=== PATIENT | female | born 1980 | race Caucasian/White ===

== ENCOUNTER 2017-12-10 10:18 | Outpatient (CLI) | payer OTHER | END 2017-12-10 10:19 | disposition home or self-care (01) | LOC: BICMAMMO 10:18 | PROVIDERS: ATTEND Family Medicine | DX: Z12.31 Encounter for screening mammogram for malignant neoplasm of breast (principal); Z80.3 Family history of malignant neoplasm of breast | CPT/HCPCS: 77067 ==

== ENCOUNTER 2017-12-31 08:18 | Outpatient (CLI) | payer OTHER | END 2017-12-31 08:19 | disposition home or self-care (01) | LOC: BICMAMMO 08:18 | PROVIDERS: ATTEND Family Medicine | DX: N63.20 Unspecified lump in the left breast, unspecified quadrant (principal) | CPT/HCPCS: G0206-LT; G0279 ==

== ENCOUNTER 2018-04-21 16:16 | Emergency (ER) | payer OTHER ==
[2018-04-21 16:57] LABS: #Eosinphils 0.1 thou/uL (0.0-0.7); #Lymphocytes 1.3 thou/uL (1.20-3.40); #Monocytes 0.3 thou/uL (0.11-0.59); #Neutrophils 4.9 thou/uL (1.40-6.50); %Basophils 0.5 % (0.0-1.0); %Eosinophils 2.2 % (0.0-10.0); %Lymphocytes 18.9 % (21.0-51.0); %Monocytes 5.1 % (0.0-10.0); %Neutrophils 73.3 % (42.0-75.0); Hemoglobin 11.3 g/dL (12.0-16.0); Mean Corpuscular HGB CONC 34.7 g/dL (32.0-36.0); Mean Corpuscular Hemoglobin 28.9 pg (27.0-31.0); Mean Corpuscular Volume 83.1 fl (81.0-99.0); Platelet Count 310 thou/uL (130-400); RBC Distribution Width 13.3 % (11.5-14.5); Red Blood Cell (RBC) Count 3.92 mill/uL (4.20-5.40); White Blood Cell (WBC) Count 6.7 thou/uL (4.8-10.8)
[2018-04-21 17:19] LABS: ALT (SGPT) 17 U/L (8-55); AST (SGOT) 15 U/L (5-34); Albumin 3.7 g/dL (3.5-5.0); Alkaline Phosphatase 76 U/L (40-150); Anion Gap 12 mmol/L (10-20); BUN (Urea Nitrogen) 8 mg/dL (7.0-18.7); Bilirubin, Total 0.3 mg/dL (0.2-1.2); Calc. Creatinine Clearance 0 mL/min (70-130); Calcium 8.7 mg/dL (7.8-10.44); Carbon Dioxide 22 mmol/L (22-29); Chloride 108 mmol/L (98-107); Estimated GFR-MDRD 84; Glucose 124 mg/dL (70-105); Potassium 3.4 mmol/L (3.5-5.1); Protein, Total 6.7 g/dL (6.0-8.3); Sodium 139 mmol/L (136-145)
--- NOTE | 2018-04-21 17:59 | RAD ---
RADIOGRAPH LEFT FOOT THREE VIEWS: 04/21/2018 5:31 p.m. HISTORY: A 38-year-old female with nontraumatic left foot swelling and pain. FINDINGS: There is soft tissue swelling of the dorsum of the foot. No periosteal elevation, osteolytic lesion, osteoblastic lesion, or permeative lesion. Mild to moderate DJD at the first MTP without hallux kilo sameer. Pes planus. The rest of the joints are normal. No fracture or dislocation. IMPRESSION: 1. Soft tissue swelling of the dorsum of the forefoot. 2. 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 3. Pes planus. POS: [facility]
== END 2018-04-21 20:11 | disposition home or self-care (01) ==
LOC: ERS 16:16
DX: L03.116 Cellulitis of left lower limb (principal); E03.9 Hypothyroidism, unspecified; F41.9 Anxiety disorder, unspecified; I10 Essential (primary) hypertension; J45.909 Unspecified asthma, uncomplicated; Z79.899 Other long term (current) drug therapy
CPT/HCPCS: 36415; 80053; 83880; 85025; 86140

== ENCOUNTER 2018-07-04 08:02 | Outpatient (CLI) | payer OTHER | END 2018-07-04 08:03 | disposition home or self-care (01) | LOC: BICMAMMO 08:02 | PROVIDERS: ATTEND Family Medicine | DX: R92.8 Other abnormal and inconclusive findings on diagnostic imaging of breast (principal); Z80.3 Family history of malignant neoplasm of breast | CPT/HCPCS: 77066; G0279 ==

== ENCOUNTER 2018-07-25 14:15 | Emergency (ER) | payer OTHER ==
[~2018-07-25 14:15] MED LIST: ISOVUE-370 76%-LOCM 1 ML ONE
[2018-07-25 15:34] LABS: #Eosinphils 0.4 thou/uL (0.0-0.7); #Lymphocytes 1.4 thou/uL (1.20-3.40); #Monocytes 0.5 thou/uL (0.11-0.59); #Neutrophils 5.1 thou/uL (1.40-6.50); %Basophils 0.4 % (0.0-1.0); %Eosinophils 5.1 % (0.0-10.0); %Lymphocytes 18.8 % (21.0-51.0); %Monocytes 7.2 % (0.0-10.0); %Neutrophils 68.5 % (42.0-75.0); Mean Corpuscular Hemoglobin 27.2 pg (27.0-31.0); Mean Corpuscular Volume 82.5 fL (78.0-98.0); Mean Platelet Volume 7.8 fL (7.4-10.4); Platelet Count 299 thou/uL (130-400); RBC Distribution Width 13.7 % (11.5-14.5); Red Blood Cell (RBC) Count 4.41 mill/uL (4.20-5.40); White Blood Cell (WBC) Count 7.4 thou/uL (4.8-10.8)
[2018-07-25 16:10] LABS: ALT (SGPT) 14 U/L (8-55); AST (SGOT) 13 U/L (5-34); Albumin 3.9 g/dL (3.5-5.0); Alkaline Phosphatase 78 U/L (40-150); Anion Gap 12 mmol/L (10-20); BUN (Urea Nitrogen) 9 mg/dL (7.0-18.7); Bilirubin, Total 0.3 mg/dL (0.2-1.2); Calc. Creatinine Clearance 0 mL/min (70-130); Calcium 9.1 mg/dL (7.8-10.44); Carbon Dioxide 21 mmol/L (22-29); Chloride 108 mmol/L (98-107); Estimated GFR-MDRD 85; Glucose 153 mg/dL (70-105); Potassium 3.4 mmol/L (3.5-5.1); Protein, Total 6.9 g/dL (6.0-8.3); Sodium 138 mmol/L (136-145)
--- NOTE | 2018-07-25 16:13 | RAD ---
CHEST ONE VIEW: HISTORY: Cough. COMPARISON: Chest radiograph from 2015. FINDINGS: There is a calcified granuloma in the left mid lung. Mild pulmonary vascular congestion. No pneumot horax. The lungs are slightly hypoinflated. IMPRESSION: No acute intrathoracic abnormality. POS: [facility]
[2018-07-25 17:46] LABS: BHCG - Serum Negative (NEGATIVE); Pregs Control Background? CLEAR/WHITE (CLR/WHITE); Pregs Control Bar Appear? YES (CONTROL BAR)
[2018-07-25 17:54] LABS: CKMB 0.6 ng/mL (0-6.6); Troponin I Less than 0.010 ng/mL (< 0.028)
[2018-07-25] MEDS ORDERED: Water For Inject, Bacteriostat 0 ML ONE (18:23)
[2018-07-25] MEDS ORDERED: Acetaminophen/Codeine 30-300mg Tablet ONE (18:23)
[2018-07-25] MEDS ORDERED: methylPREDNISolone Sod Succ/PF 125 MG/2 ML VIAL ONE (18:23)
[2018-07-25] MEDS ORDERED: Ondansetron HCl/PF 4 MG/2 ML Vial ONE (18:28)
--- NOTE | 2018-07-25 19:15 | CT ---
CT ANGIO OF CHEST PERFORMED WITH INTRAVENOUS CONTRAST ENHANCEMENT WITH 3D RECONSTRUCTIONS: 07/25/18 HISTORY: Cough, shortness of breath. The lungs are clear of any infiltrative process. Calcified granuloma is seen in the lingula. No pleu ral effusions. I do not appreciate any significant mediastinal, hilar or axillary adenopathy. The thoracic aorta is normal in caliber. There is less than optimal pulmonary artery opacification. I do not see any eviden ce that would suggest any type of central pulmonary embolus. Small peripheral emboli cannot be exclud ed on the basis of this study. The visualized liver, parenchyma shows no findings. The spleen appears borderline in size. IMPRESSION: 1. Somewhat limited examination but no CT evidence for pulmonary embolus. 2. Borderline spleen size. POS: [facility]
== END 2018-07-25 18:38 | disposition home or self-care (01) ==
LOC: ERS 14:15
DX: J20.9 Acute bronchitis, unspecified (principal); E03.9 Hypothyroidism, unspecified; J45.909 Unspecified asthma, uncomplicated; F41.9 Anxiety disorder, unspecified; F32.9 Major depressive disorder, single episode, unspecified; Z79.899 Other long term (current) drug therapy
CPT/HCPCS: 36415; 71045; 71275; 80053; 82553; 83605; 84484; 84703; 85025; 85379; 87040; 93005; 94640; 94760; 96374; 96375; J2405; J2930; J7620

== ENCOUNTER 2018-12-03 08:14 | Outpatient (CLI) | payer OTHER ==
--- NOTE | 2018-12-03 09:40 | MRI ---
MRI OF RIGHT KNEE PERFORMED WITHOUT CONTRAST ENHANCEMENT: HISTORY: Right knee pain. FINDINGS: The anterior and posterior cruciate ligaments are intact. The medial meniscus has a normal shape and appearance. Some mild increased intrameniscal signal oviedo ge is present, but no articular surface tear. The lateral meniscus shows a tear involving the junction of the anterior horn and body of the meniscu s. There appears to some displaced meniscal tissue displaced into the meniscal femoral recess. The medial and lateral collateral ligaments and iliotibial band regions are unremarkable. Patellar articular cartilage is intact. The medial and lateral patellar retinaculum and quadriceps a nd patellar tendons are normal. IMPRESSION: A tear involving the junction of the body and anterior horn of the lateral meniscus with irregular ap pearance to the meniscus in this region and some meniscal tissue displaced into the region of the men iscal femoral recess region. POS: [facility]
== END 2018-12-03 08:15 | disposition home or self-care (01) ==
LOC: SCSMRI 08:14
PROVIDERS: ATTEND Orthopaedic Surgery
DX: M25.561 Pain in right knee (principal); S83.281A Other tear of lateral meniscus, current injury, right knee, initial encounter

== ENCOUNTER 2019-01-06 09:37 | Outpatient (CLI) | payer OTHER ==
--- NOTE | 2019-01-06 14:59 | MMO ---
FILMS COMPARED: The present examination has been compared to prior imaging studies performed at [facility] on 12/10/2017, 12/31/2017 and 07/04/2018. MAMMOGRAM FINDINGS: There are scattered fibroglandular densities. There are no suspicious masses, calcifications or areas of architectural distortion. IMPRESSION: THERE IS NO MAMMOGRAPHIC EVIDENCE OF MALIGNANCY. A ROUTINE FOLLOW-UP MAMMOGRAM AT AGE 40 IS RECOMMENDED. ACR BI-RADS Category 1 - Negative
== END 2019-01-06 09:38 | disposition home or self-care (01) ==
LOC: BICMAMMO 09:37
PROVIDERS: ATTEND Family Medicine
DX: R92.8 Other abnormal and inconclusive findings on diagnostic imaging of breast (principal)
CPT/HCPCS: 77066; G0279